=== PATIENT | male | born 1965 | race African-American/Black ===

== ENCOUNTER 2017-04-08 15:08 | Emergency (ER) | payer MEDICARE, MEDICAID ==
[~2017-04-08] VITALS: Ht 185.4 cm; Wt 75.0 kg
[~2017-04-08 15:08] MED LIST: PHEN-434 PO; TH25 PO
[2017-04-08 15:18] VITALS: BP 111/74
== END 2017-04-08 20:25 | disposition left against medical advice (07) ==
LOC: ER 15:09
DX: Z04.3 Encounter for examination and observation following other accident (principal); M79.671 Pain in right foot; Z53.21 Procedure and treatment not carried out due to patient leaving prior to being seen by health care provider

== ENCOUNTER 2018-12-11 03:21 | Emergency (ER) | payer MEDICARE, MEDICAID ==
[~2018-12-11] VITALS: Ht 185.4 cm; Wt 82.0 kg
[~2018-12-11 03:21] MED LIST changes: -TH25 PO
[2018-12-11 03:48] VITALS: BP 156/111
== END 2018-12-11 05:22 | disposition left against medical advice (07) ==
LOC: ER 03:21
DX: I10 Essential (primary) hypertension (principal)
CPT/HCPCS: 99281

== ENCOUNTER 2019-07-02 15:32 | Emergency (ER) | payer MEDICARE, MEDICAID ==
[~2019-07-02] VITALS: Ht 185.4 cm; Wt 88.0 kg
[2019-07-02 15:48] VITALS: BP 136/92
== END 2019-07-02 21:09 | disposition left against medical advice (07) ==
LOC: ER 16:32
DX: Z53.21 Procedure and treatment not carried out due to patient leaving prior to being seen by health care provider (principal); R09.89 Other specified symptoms and signs involving the circulatory and respiratory systems; R05 Cough
CPT/HCPCS: 93005